=== PATIENT | female | born 1935 | race Caucasian/White ===

== ENCOUNTER 2017-08-26 23:14 | Inpatient (IN) | payer MEDICARE, OTHER ==
[2017-08-26] MEDS ORDERED: Sodium Chloride 0.9% 10 ML Syringe FLUSH PRN (23:20)
--- NOTE | 2017-08-26 23:25 | EDM.PDOC ---
ED HPI GENERAL MEDICAL PROBLEM - General Chief Complaint: Lower Extremity Injury/Pain Stated Complaint: FALL VIA NORTH Time Seen by Provider: 08/26/17 23:16 Source of Information: Reports: Patient, EMS, Old Records, RN Notes Reviewed History Limitations: Reports: No Limitations - History of Present Illness INITIAL COMMENTS - FREE TEXT/NARRATIVE: EMS arrival, received fentanyl 100 g IV prior to arrival Chief complaint Fall, right hip pain History of present illness 82-year-old female, lives in her home with her , tripped over a rocker and landed on her right hip. Unable to get up. Considerable pain. No other injuries If she lays still in is mild and currently She does have some shaking currently No recent illness but she always has some nasal congestion. History of hypertension right hip Pain Score (Numeric/FACES): 6 - Related Data Allergies Allergy/AdvReac Type Severity Reaction Status Date / Time Sulfa (Sulfonamide Allergy Nausea and Verified 08/26/17 23:19 Antibiotics) Vomiting Home Meds: Home Meds Lisinopril 1 tab PO DAILY 08/26/17 [History] Metoprolol Succinate [Toprol XL] 25 mg PO DAILY 08/26/17 [History] Triamterene/Hydrochlorothiazid [Triamterene-HCTZ 37.5-25 MG] 1 tab PO DAILY 11/05 [History] tiZANidine HCl [Tizanidine HCl] 4 mg PO Q8H PRN 08/26/17 [History] Review of Systems - Review of Systems Review Of Systems: See Below Constitutional: Reports: No Symptoms Eyes: Reports: No Symptoms Ears: Reports: No Symptoms Nose: Reports: Congestion. Denies: Pain Mouth/Throat: Reports: No Symptoms Respiratory: Reports: No Symptoms Cardiovascular: Reports: No Symptoms GI/Abdominal: Reports: No Symptoms Musculoskeletal: Reports: Joint Pain (Right hip), Joint Swelling (Right hip right thigh and hip), Other. Denies: Back Pain Skin: Reports: No Symptoms (Unable to weight-bear) Neurological: Reports: No Symptoms Psychiatric: Reports: No Symptoms ED EXAM, GENERAL - Physical Exam Exam: See Below Exam Limited By: No Limitations General Appearance: Alert, Mild Distress, Other (Shaking with tremors from the fall, elevated blood pressure but other vital signs normal, color normal, no difficulty speaking or breathing) Eye Exam: Bilateral Eye: Normal Inspection Ears: Normal External Exam, Hearing Loss (Chronic, mild) Nose: Normal Inspection Throat/Mouth: Normal Inspection Head: Atraumatic, Normocephalic Neck: Normal Inspection, Non-Tender Respiratory/Chest: No Respiratory Distress, No Accessory Muscle Use (In) Cardiovascular: Normal Peripheral Pulses, Regular Rate, Rhythm GI/Abdominal: Soft, Non-Tender Extremities: Joint Swelling (Right hip), Limited Range of Motion, Other (Large swelling, probable hematoma right hip) Neurological: Alert, Oriented, Normal Cognition Psychiatric: Normal Affect Skin Exam: Warm, Dry, Intact, Normal Color, No Rash Course - Vital Signs Last Recorded V/S: Last Vital Signs Temp 36.8 C 08/26/17 23:16 Pulse 72 08/26/17 23:16 Resp 18 08/26/17 23:16 BP 167/82 H 08/26/17 23:16 Pulse Ox 92 L 08/26/17 23:16 - Orders/Labs/Meds Orders: Active Orders 24 hr Category Date Time Status Peripheral IV Care [RC] . DIRECTED Care 08/26/17 23:20 Active Chest 1V Frontal [CR] Stat Exams 08/26/17 23:52 Taken Hip Min 1V Rt [CR] Stat Exams 08/26/17 23:26 Ordered Sodium Chloride 0.9% [Normal Saline] 1,000 ml Med 08/26/17 23:30 Active IV ASDIRECTED Sodium Chloride 0.9% [Saline Flush] Med 08/26/17 23:20 Active 10 ml FLUSH ASDIRECTED PRN Peripheral IV Insertion Adult [OM.PC] Routine Oth 08/26/17 23:19 Ordered Medication Orders Sodium Chloride (Normal Saline) 1,000 mls @ 250 mls/hr IV ASDIRECTED BRENT Last Admin: 08/26/17 23:37 Dose: 250 mls/hr Sodium Chloride (Saline Flush) 10 ml FLUSH ASDIRECTED PRN PRN Reason: Keep Vein Open Last Admin: 08/26/17 23:37 Dose: 10 ml Labs: Laboratory Tests 08/26/17 08/26/17 Range/Units 23:25 23:25 WBC 5.6 (4.5-11.0) K/uL RBC 4.59 (3.30-5.50) M/uL Hgb 14.0 (12.0-15.0) g/dL Hct 41.0 (36.0-48.0) % MCV 89 (80-98) fL MCH 31 (27-31) pg MCHC 34 (32-36) % Plt Count 216 (150-400) K/uL Sodium 128 L (140-148) mmol/L Potassium 3.9 (3.6-5.2) mmol/L Chloride 93 L (100-108) mmol/L Carbon Dioxide 27 (21-32) mmol/L Anion Gap 11.9 (5.0-14.0) mmol/L BUN 30 H (7-18) mg/dL Creatinine 1.1 H (0.6-1.0) mg/dL Est Cr Clr Drug Dosing 34.26 mL/min Estimated GFR (MDRD) 47 L (>60) Glucose 109 H (74-106) mg/dL Calcium 9.2 (8.5-10.1) mg/dL Meds: Medications Generic Name Dose Route Start Last Admin Trade Name Freq PRN Reason Stop Dose Admin Sodium Chloride 1,000 mls @ 250 mls/hr 08/26/17 23:30 08/26/17 23:37 Normal Saline IV 250 mls/hr ASDIRECTED BRENT Administration Sodium Chloride 10 ml 08/26/17 23:20 08/26/17 23:37 Saline Flush FLUSH 10 ml ASDIRECTED PRN Administration Keep Vein Open - Re-Assessments/Exams Free Text/Narrative Re-Assessment/Exam: 08/26/17 23:24 82-year-old female who tripped and fell at her own home Large swelling and hematoma right hip. Intravenous saline and labs ordered X-ray right hip 08/27/17 00:05 Subtrochanteric fracture of the shaft of the right femur Dr. Christianson consult at for admission, admit to hospitalist, he plans on doing surgery in the morning Hydromorphone 0.5 mg IV for pain Traction to right leg Departure - Departure Time of Disposition: 00:06 Disposition: Admitted As Inpatient 64 Condition: Undetermined Clinical Impression: Subtrochanteric fracture of femur Qualifiers: Encounter type: initial encounter Fracture type: closed Fracture alignment: displaced Laterality: right Qualified Code(s): S72.21XA - Displaced subtrochanteric fracture of right femur, initial encounter for closed fracture - Discharge Information Referrals: PCP,None [Primary Care Provider] - - My Orders Last 24 Hours: My Active Orders 08/26/17 23:19 Peripheral IV Insertion Adult [OM.PC] Routine 08/26/17 23:20 Peripheral IV Care [RC] . DIRECTED Sodium Chloride 0.9% [Saline Flush] 10 ml FLUSH ASDIRECTED PRN 08/26/17 23:26 Hip Min 1V Rt [CR] Stat 08/26/17 23:30 Sodium Chloride 0.9% [Normal Saline] 1,000 ml IV ASDIRECTED 08/26/17 23:52 Chest 1V Frontal [CR] Stat - Assessment/Plan Last 24 Hours: My Active Orders 08/26/17 23:19 Peripheral IV Insertion Adult [OM.PC] Routine 08/26/17 23:20 Peripheral IV Care [RC] . DIRECTED Sodium Chloride 0.9% [Saline Flush] 10 ml FLUSH ASDIRECTED PRN 08/26/17 23:26 Hip Min 1V Rt [CR] Stat 08/26/17 23:30 Sodium Chloride 0.9% [Normal Saline] 1,000 ml IV ASDIRECTED 08/26/17 23:52 Chest 1V Frontal [CR] Stat
[2017-08-26] MEDS ORDERED: Sodium Chloride 0.9% 1,000 ML IV SCH (23:30)
[2017-08-27] MEDS ORDERED: HYDROmorphone 0.5 MG/0.5 ML Syringe IVPUSH ONE (00:17)
[2017-08-27] MEDS ORDERED: Pantoprazole 40 MG Vial IV SCH (00:30)
--- NOTE | 2017-08-27 00:34 | PCM.HP ---
H&P History of Present Illness - General Date of Service: 08/27/17 Admit Problem/Dx: Admission Diagnosis/Problem Admission Diagnosis/Problem Subtrochanteric fracture of femur Source of Information: Patient History Limitations: Reports: No Limitations - History of Present Illness Initial Comments - Free Text/Narative: 82-year-old female with past medical history of hypertension came to the ED with the complaining of fall. Patient tripped herself and landed on the right lower extremity. Since then patient unable to get up and unable to put weight on the right lower extremity. Patient reports that the pain is 4-5/10 intensity. Chest pain Patient received 1 dose of fentanyl, 1 dose of Dilantin in the ED. Patient denies any chest pain, exertional chest pain, breathing difficulty, headaches, dizziness, lightheadedness. Patient denies any head injury, loss of consciousness. Patient denies any abnormal shaking movements. Patient is Compliment with blood pressure medications. In the ED patient lab results and electrolytes are at baseline. Received pain medication and IV fluids. Other review of systems are not significant. right hip Pain Score (Numeric/FACES): 6 - Related Data Allergies/Adverse Reactions: Allergies Allergy/AdvReac Type Severity Reaction Status Date / Time Sulfa (Sulfonamide Allergy Nausea and Verified 08/26/17 23:19 Antibiotics) Vomiting Home Medications: Home Meds Lisinopril 1 tab PO DAILY 08/26/17 [History] Metoprolol Succinate [Toprol XL] 25 mg PO DAILY 08/26/17 [History] Triamterene/Hydrochlorothiazid [Triamterene-HCTZ 37.5-25 MG] 1 tab PO DAILY 11/05 [History] tiZANidine HCl [Tizanidine HCl] 4 mg PO Q8H PRN 08/26/17 [History] Aspirin [Halfprin] 81 mg PO DAILY 08/27/17 [History] Past Medical History HEENT History: Reports: Cataract Cardiovascular History: Reports: High Cholesterol, Hypertension - Past Surgical History HEENT Surgical History: Reports: Cataract Surgery Female Surgical History: Reports: Hysterectomy, Salpingo-Oophorectomy Social & Family History - Family History Family Medical History: Noncontributory - Tobacco Use Smoking Status *Q: Never Smoker - Caffeine Use Caffeine Use: Reports: Tea - Recreational Drug Use Recreational Drug Use: No H&P Review of Systems - Review of Systems: Review Of Systems: See Below General: Denies: Fever, Chills HEENT: Denies: Dysphasia, Ear Pain, Eye Pain Pulmonary: Denies: Shortness of Breath, Wheezing, Pleuritic Chest Pain, Cough, Sputum, Hemoptysis Cardiovascular: Denies: Chest Pain, Palpitations, Dyspnea on Exertion, Orthopnea , Edema, Lightheadedness Gastrointestinal: Denies: Abdominal Pain Genitourinary: Denies: Dysuria, Frequency, Burning Musculoskeletal: Reports: Leg Pain, Joint Pain, Joint Swelling. Denies: Neck Pain, Shoulder Pain Skin: Denies: Cyanosis, Jaundice Psychiatric: Denies: Confusion, Depression Neurological: Reports: Gait Disturbance. Denies: Confusion, Dizziness Hematologic/Lymphatic: Denies: Anemia, Easy Bleeding Exam - Exam Exam: See Below - Vital Signs Vital Signs: Last Vital Signs Temp 36.8 C 08/26/17 23:16 Pulse 72 08/26/17 23:16 Resp 18 08/26/17 23:16 BP 167/82 H 08/26/17 23:16 Pulse Ox 92 L 08/26/17 23:16 Weight: 61.235 kg - Exam General: Alert, Oriented Neck: Supple, Trachea Midline Lungs: Clear to Auscultation, Normal Respiratory Effort Cardiovascular: Regular Rate, Regular Rhythm Extremities: Leg Pain, Limited Range of Motion, Increased Warmth Skin: Warm, Dry, Intact Neuro Extensive - Mental Status: Alert, Oriented x3, Normal Mood/Affect - Patient Data Lab Results Last 24 hrs: Laboratory Results - last 24 hr 08/26/17 08/26/17 Range/Units 23:25 23:25 WBC 5.6 (4.5-11.0) K/uL RBC 4.59 (3.30-5.50) M/uL Hgb 14.0 (12.0-15.0) g/dL Hct 41.0 (36.0-48.0) % MCV 89 (80-98) fL MCH 31 (27-31) pg MCHC 34 (32-36) % Plt Count 216 (150-400) K/uL Sodium 128 L (140-148) mmol/L Potassium 3.9 (3.6-5.2) mmol/L Chloride 93 L (100-108) mmol/L Carbon Dioxide 27 (21-32) mmol/L Anion Gap 11.9 (5.0-14.0) mmol/L BUN 30 H (7-18) mg/dL Creatinine 1.1 H (0.6-1.0) mg/dL Est Cr Clr Drug Dosing 34.26 mL/min Estimated GFR (MDRD) 47 L (>60) Glucose 109 H (74-106) mg/dL Calcium 9.2 (8.5-10.1) mg/dL Result Diagrams: 08/26/17 23:25 08/26/17 23:25 - Problem List (1) Essential hypertension SNOMED Code(s): 53709781 ICD Code: I10 - ESSENTIAL (PRIMARY) HYPERTENSION Status: Acute Current Visit: Yes (2) Hematoma SNOMED Code(s): 460061245 ICD Code: T14.8XXA - OTHER INJURY OF UNSPECIFIED BODY REGION, INITIAL ENCOUNTER Status: Acute Current Visit: Yes (3) Fall SNOMED Code(s): 9153515, 829240027 ICD Code: W19.XXXA - UNSPECIFIED FALL, INITIAL ENCOUNTER Status: Acute Current Visit: Yes (4) Subtrochanteric fracture of femur SNOMED Code(s): 301501396 ICD Code: S72.23XA - DISPLACED SUBTROCHANTERIC FRACTURE OF UNSP FEMUR, INIT Status: Acute Current Visit: Yes Qualifiers: Encounter type: initial encounter Fracture type: closed Fracture alignment: displaced Laterality: right Qualified Code(s): S72.21XA - Displaced subtrochanteric fracture of right femur, initial encounter for closed fracture Problem List Initiated/Reviewed/Updated: Yes Orders Last 24hrs: Active Orders 24 hr Category Date Time Status Patient Status [ADT] Routine ADT 08/27/17 00:23 Ordered Bedrest Bathroom Privileges [RC] ASDIRECTED Care 08/27/17 00:23 Ordered Cardiac Monitoring [RC] .As Directed Care 08/27/17 00:25 Ordered Height and Weight [RC] DAILY Care 08/27/17 00:23 Ordered Intake and Output [RC] QSHIFT Care 08/27/17 00:25 Ordered Notify Provider Consults [RC] ASDIRECTED Care 08/27/17 00:28 Ordered Oxygen Therapy [RC] PRN Care 08/27/17 00:23 Ordered Peripheral IV Care [RC] . DIRECTED Care 07/09/18 23:20 Active Pulse Oximetry [RC] PRN Care 08/27/17 00:25 Ordered Urinary Catheter Assessment [RC] ASDIRECTED Care 08/27/17 00:23 Ordered VTE/DVT Education [RC] Per Unit Routine Care 08/27/17 00:23 Ordered Vital Signs [RC] Q4H Care 08/27/17 00:23 Ordered Consult to Physician [CONS] Routine Cons 08/27/17 00:23 Ordered OT Evaluation and Treatment [CONS] Routine Cons 08/27/17 00:23 Ordered PT Evaluation and Treatment [CONS] Routine Cons 08/27/17 00:23 Ordered Nothing per Oral Now Diet [DIET] Diet 08/27/17 Breakfast Ordered Chest 1V Frontal [CR] Stat Exams 08/26/17 23:52 Taken Hip Min 1V Rt [CR] Stat Exams 08/26/17 23:26 Taken CBC WITH AUTO DIFF [HEME] AM Lab 08/27/17 05:11 Ordered COMPREHENSIVE METABOLIC PN,CMP [CHEM] AM Lab 08/27/17 05:11 Ordered CULTURE URINE [RM] Stat Lab 08/27/17 00:23 Ordered UA W/O MICROSCOPIC [URIN] Stat Lab 08/27/17 00:23 Ordered Docusate Sodium/Sennosides [Senna Plus] Med 08/27/17 00:23 Ordered 1 tab PO BID PRN Morphine Med 08/27/17 00:23 Ordered 2 mg IVPUSH Q2H PRN Ondansetron [Zofran] Med 08/27/17 00:23 Ordered 4 mg IV Q4H PRN Pantoprazole [ProTONIX IV] Med 08/27/17 00:30 Ordered 40 mg IV Q24H Sodium Chloride 0.9% [Normal Saline] 1,000 ml Med 08/26/17 23:30 Active IV ASDIRECTED Sodium Chloride 0.9% [Saline Flush] Med 08/26/17 23:20 Active 10 ml FLUSH ASDIRECTED PRN Antiembolic Hose [OM.PC] Per Unit Routine Oth 08/27/17 00:25 Ordered Peripheral IV Insertion Adult [OM.PC] Routine Oth 08/26/17 23:19 Ordered Resuscitation Status Routine Resus Stat 08/27/17 00:23 Ordered Medication Orders Sodium Chloride (Normal Saline) 1,000 mls @ 250 mls/hr IV ASDIRECTED BRENT Last Admin: 08/26/17 23:37 Dose: 250 mls/hr Morphine Sulfate (Morphine) 2 mg IVPUSH Q2H PRN PRN Reason: Pain (severe 7-10) Ondansetron HCl (Zofran) 4 mg IV Q4H PRN PRN Reason: Nausea/Vomiting Pantoprazole Sodium (Protonix Iv) 40 mg IV Q24H [facility] Senna/Docusate Sodium (Senna Plus) 1 tab PO BID PRN PRN Reason: Constipation Sodium Chloride (Saline Flush) 10 ml FLUSH ASDIRECTED PRN PRN Reason: Keep Vein Open Last Admin: 08/26/17 23:37 Dose: 10 ml Assessment/Plan Comment:: 82-year-old female with past medical history of hypertension came to the ED with c/o of fall and diagnosed with sub-trochanteric fracture of right femur and admitted in the hospital as inpatient status. 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 No previous history of CAD Diet nothing by mouth for now IV fluids 125 ml/per hour normal saline CODE STATUS full code Folic catheter in place DVT prophylaxis Pass boots
[2017-08-27] MEDS: Morphine 2 MG/ML Syringe IVPUSH PRN ×4 (02:26→11:33)
[2017-08-27] MEDS: Sodium Chloride 0.9% 1,000 ML IV SCH ×2 (05:32→16:48)
--- NOTE | 2017-08-27 08:34 | CR ---
CHEST: Portable supine CLINICAL HISTORY:Preop COMPARISON:None FINDINGS: Vascularity is cephalized. This may be positional. Heart size is normal. There are no effu sions. IMPRESSION: Mildly prominent vascularity and lung markings are likely related to supine position. No infiltrates are seen
--- NOTE | 2017-08-27 08:44 | CR ---
Hip Min 1V Rt CLINICAL HISTORY: Pain, trauma FINDINGS: There is a dislocated subtrochanteric fracture of the right femur. There is moderate abduct ion of the proximal femur. Impression: Transverse displaced subtrochanteric fracture Moderate abduction of the proximal femur
[2017-08-27] MEDS ORDERED: fentaNYL 100 MCG/2 ML SDV ONE (09:36)
[2017-08-27] MEDS ORDERED: Midazolam 1 MG/ML 2 ML SDV ONE (09:36)
[2017-08-27] MEDS ORDERED: Propofol 200 MG/20 ML SDV ONE (09:36)
[2017-08-27] MEDS ORDERED: Povidone-Iodine 10% Soln 118.25 ML Bottle ONE (11:06)
[2017-08-27] MEDS ORDERED: Bupivacaine 0.5%/EPINEPHrine 1:200,000 50 ML MDV ONE (11:06)
--- NOTE | 2017-08-27 11:50 | PCM.CONS ---
H&P History of Present Illness - General Date of Service: 08/27/17 Admit Problem/Dx: Admission Diagnosis/Problem Admission Diagnosis/Problem Subtrochanteric fracture of femur Source of Information: Patient History Limitations: Reports: No Limitations - History of Present Illness Onset of Symptoms: Reports: Sudden Duration of Symptoms: Reports: Day(s): Location: Reports: Lower Extremity, Right Quality: Reports: Ache, Dull, Stabbing, Throbbing Improves with: Reports: Immobilization Worsens with: Reports: Movement Associated Symptoms: Reports: No Other Symptoms right hip Pain Score (Numeric/FACES): 6 - Related Data Allergies/Adverse Reactions: Allergies Allergy/AdvReac Type Severity Reaction Status Date / Time Sulfa (Sulfonamide Allergy Nausea and Verified 08/26/17 23:19 Antibiotics) Vomiting Home Medications: Home Meds Lisinopril 1 tab PO DAILY 08/26/17 [History] Metoprolol Succinate [Toprol XL] 25 mg PO DAILY 08/26/17 [History] Triamterene/Hydrochlorothiazid [Triamterene-HCTZ 37.5-25 MG] 1 tab PO DAILY 11/05 [History] tiZANidine HCl [Tizanidine HCl] 4 mg PO Q8H PRN 08/26/17 [History] Aspirin [Halfprin] 81 mg PO DAILY 08/27/17 [History] Past Medical History HEENT History: Reports: Cataract Cardiovascular History: Reports: High Cholesterol, Hypertension 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: - Infectious Disease History Infectious Disease History: Reports: Chicken Pox, Measles, Mumps, Shingles - Past Surgical History HEENT Surgical History: Reports: Cataract Surgery Female Surgical History: Reports: Hysterectomy, Salpingo-Oophorectomy Social & Family History - Family History Family Medical History: Noncontributory Cardiac: Reports: Heart Failure Endocrine/Metabolic: Reports: Diabetes, type II Oncologic: Reports: Breast - Tobacco Use Smoking Status *Q: Never Smoker - Caffeine Use Caffeine Use: Reports: Tea - Recreational Drug Use Recreational Drug Use: No H&P Review of Systems - Review of Systems: Review Of Systems: See Below General: Reports: No Symptoms HEENT: Reports: No Symptoms Pulmonary: Reports: No Symptoms Cardiovascular: Reports: No Symptoms Gastrointestinal: Reports: No Symptoms Genitourinary: Reports: No Symptoms Musculoskeletal: Reports: Leg Pain, Joint Pain Skin: Reports: No Symptoms Psychiatric: Reports: No Symptoms Neurological: Reports: No Symptoms Hematologic/Lymphatic: Reports: No Symptoms Immunologic: Reports: No Symptoms Exam - Exam Exam: See Below - Vital Signs Vital Signs: Last Vital Signs Temp 99.1 F 08/27/17 11:32 Pulse 66 08/27/17 11:32 Resp 16 08/27/17 11:32 BP 155/63 H 08/27/17 11:32 Pulse Ox 97 08/27/17 11:32 Weight: 140 lb 0.002 oz - Exam General: Alert, Oriented HEENT: PERRLA, Conjunctiva Clear, Mucosa Moist & [place], Normal Nasal Septum, Pupils Equal Neck: Supple, Trachea Midline Lungs: Normal Respiratory Effort Extremities: Leg Pain, Limited Range of Motion Peripheral Pulses: 2+: Dorsalis Pedis (L), Dorsalis Pedis (R) Skin: Warm, Dry, Intact Neuro Extensive - Mental Status: Alert, Oriented x3, Normal Mood/Affect, Normal Cognition, Memory Intact Psychiatric: Alert, Normal Affect, Normal Mood - Patient Data Lab Results Last 24 hrs: Laboratory Results - last 24 hr 08/26/17 08/26/17 08/27/17 Range/Units 23:25 23:25 00:01 WBC 5.6 (4.5-11.0) K/uL RBC 4.59 (3.30-5.50) M/uL Hgb 14.0 (12.0-15.0) g/dL Hct 41.0 (36.0-48.0) % MCV 89 (80-98) fL MCH 31 (27-31) pg MCHC 34 (32-36) % Plt Count 216 (150-400) K/uL Neut % (Auto) (36-66) % Lymph % (Auto) (24-44) % [place] % (Auto) (2-6) % Eos % (Auto) (2-4) % Baso % (Auto) (0-1) % Sodium 128 L (140-148) mmol/L Potassium 3.9 (3.6-5.2) mmol/L Chloride 93 L (100-108) mmol/L Carbon Dioxide 27 (21-32) mmol/L Anion Gap 11.9 (5.0-14.0) mmol/L BUN 30 H (7-18) mg/dL Creatinine 1.1 H (0.6-1.0) mg/dL Est Cr Clr Drug Dosing 34.26 mL/min Estimated GFR (MDRD) 47 L (>60) Glucose 109 H (74-106) mg/dL Calcium 9.2 (8.5-10.1) mg/dL Total Bilirubin (0.2-1.0) mg/dL AST (15-37) U/L ALT (12-78) U/L Alkaline Phosphatase (46-116) U/L Creatine Kinase 147 (26-192) U/L Total Protein (6.4-8.2) g/dL Albumin (3.4-5.0) g/dL Globulin (2.3-3.5) g/dL Albumin/Globulin Ratio (1.2-2.2) Urine Color Urine Appearance Urine pH (4.5-8.0) Ur Specific [place] (1.008-1.030) Urine Protein (NEGATIVE) mg/dL Urine Glucose (UA) (NEGATIVE) mg/dL Urine Ketones (NEGATIVE) mg/dL Urine Occult Blood (NEGATIVE) Urine Nitrite (NEGATIVE) Urine Bilirubin (NEGATIVE) Urine Urobilinogen (NORMAL) mg/dL Ur Leukocyte Esterase (NEGATIVE) 08/27/17 08/27/17 08/27/17 Range/Units 00:39 05:10 05:10 WBC 8.1 (4.5-11.0) K/uL RBC 4.45 (3.30-5.50) M/uL Hgb 14.0 (12.0-15.0) g/dL Hct 39.6 (36.0-48.0) % MCV 89 (80-98) fL MCH 32 H (27-31) pg MCHC 35 (32-36) % Plt Count 211 (150-400) K/uL Neut % (Auto) 88 H (36-66) % Lymph % (Auto) 5 L (24-44) % [place] % (Auto) 6 (2-6) % Eos % (Auto) 0 L (2-4) % Baso % (Auto) 0 (0-1) % Sodium 127 L (140-148) mmol/L Potassium 3.7 (3.6-5.2) mmol/L Chloride 93 L (100-108) mmol/L Carbon Dioxide 25 (21-32) mmol/L Anion Gap 12.7 (5.0-14.0) mmol/L BUN 22 H (7-18) mg/dL Creatinine 0.9 (0.6-1.0) mg/dL Est Cr Clr Drug Dosing 41.87 mL/min Estimated GFR (MDRD) 60 (>60) Glucose 134 H (74-106) mg/dL Calcium 8.4 L (8.5-10.1) mg/dL Total Bilirubin 0.5 (0.2-1.0) mg/dL AST 22 (15-37) U/L ALT 24 (12-78) U/L Alkaline Phosphatase 54 (46-116) U/L Creatine Kinase (26-192) U/L Total Protein 6.2 L (6.4-8.2) g/dL Albumin 3.3 L (3.4-5.0) g/dL Globulin 2.9 (2.3-3.5) g/dL Albumin/Globulin Ratio 1.1 L (1.2-2.2) Urine Color Yellow Urine Appearance Clear Urine pH 7.0 (4.5-8.0) Ur Specific [place] 1.010 (1.008-1.030) Urine Protein Negative (NEGATIVE) mg/dL Urine Glucose (UA) Normal (NEGATIVE) mg/dL Urine Ketones Negative (NEGATIVE) mg/dL Urine Occult Blood Negative (NEGATIVE) Urine Nitrite Negative (NEGATIVE) Urine Bilirubin Negative (NEGATIVE) Urine Urobilinogen Normal (NORMAL) mg/dL Ur Leukocyte Esterase Negative (NEGATIVE) Result Diagrams: 08/27/17 05:10 08/27/17 05:10 Consult PN Assessment/Plan Procedures: Procedures COMP SCREEN MAMMOGRAM ADD-ON (11/23/15) COMPUTER DX MAMMOGRAM ADD-ON (11/12/12) MAMMOGRAM ONE BREAST (11/12/12) TTE W/DOPPLER COMPLETE (06/25/16) US EXAM BREAST(S) (11/12/12) (1) Subtrochanteric fracture of femur SNOMED Code(s): 971613156 Code(s): S72.23XA - DISPLACED SUBTROCHANTERIC FRACTURE OF UNSP FEMUR, INIT Current Visit: Yes Qualifiers: Encounter type: initial encounter Fracture type: closed Fracture alignment: displaced Laterality: right Qualified Code(s): S72.21XA - Displaced subtrochanteric fracture of right femur, initial encounter for closed fracture Problem List Initiated/Reviewed/Updated: Yes My Orders Last 24 Hours: My Active Orders 08/27/17 12:30 ceFAZolin [Ancef] 2 gm Premix Bag 1 bag IV ONCALL Plan: A: POD 0 right closed subtrochanteric femur fracture, displaced P: NPO, informed consent obtained for right femur cephallomedullary nail, pain control
[2017-08-27] MEDS ORDERED: ceFAZolin 2 GM in Premix Bag 1 BAG IV ONE (12:30)
[2017-08-27] MEDS ORDERED: Ondansetron 4 MG/2 ML SDV ONE (12:35)
[2017-08-27] MEDS ORDERED: ePHEDrine 50 MG/ML SDV ONE (12:39)
[2017-08-27] MEDS ORDERED: Morphine 2 MG/ML Syringe IVPUSH PRN (13:07)
--- NOTE | 2017-08-27 17:36 | PCM.PN ---
- General Info Date of Service: 08/27/17 Subjective Update: Ms. Holloway is an 82-year-old woman who was admitted through the emergency department after she fell at home and experienced a right subtrochanteric hip fracture. Surgical repair performed earlier today by Dr. Christianson. Functional Status: Reports: Tolerating Diet - Review of Systems General: Reports: Weakness. Denies: Fever, Chills Pulmonary: Reports: No Symptoms Cardiovascular: Reports: No Symptoms Gastrointestinal: Reports: No Symptoms - Patient Data Vitals - Most Recent: Last Vital Signs Temp 97.5 F 08/27/17 16:30 Pulse 71 08/27/17 16:30 Resp 16 08/27/17 16:30 BP 90/61 08/27/17 16:30 Pulse Ox 100 08/27/17 16:30 Weight - Most Recent: 140 lb 0.002 oz I&O - Last 24 Hours: Intake & Output 08/27/17 08/27/17 08/27/17 06:59 14:59 22:59 Intake Total 433 120 Output Total 1325 1600 Balance -892 -1600 120 Lab Results Last 24 Hours: Laboratory Results - last 24 hr 08/26/17 08/26/17 08/27/17 Range/Units 23:25 23:25 00:01 WBC 5.6 (4.5-11.0) K/uL RBC 4.59 (3.30-5.50) M/uL Hgb 14.0 (12.0-15.0) g/dL Hct 41.0 (36.0-48.0) % MCV 89 (80-98) fL MCH 31 (27-31) pg MCHC 34 (32-36) % Plt Count 216 (150-400) K/uL Neut % (Auto) (36-66) % Lymph % (Auto) (24-44) % [place] % (Auto) (2-6) % Eos % (Auto) (2-4) % Baso % (Auto) (0-1) % Sodium 128 L (140-148) mmol/L Potassium 3.9 (3.6-5.2) mmol/L Chloride 93 L (100-108) mmol/L Carbon Dioxide 27 (21-32) mmol/L Anion Gap 11.9 (5.0-14.0) mmol/L BUN 30 H (7-18) mg/dL Creatinine 1.1 H (0.6-1.0) mg/dL Est Cr Clr Drug Dosing 34.26 mL/min Estimated GFR (MDRD) 47 L (>60) Glucose 109 H (74-106) mg/dL Calcium 9.2 (8.5-10.1) mg/dL Total Bilirubin (0.2-1.0) mg/dL AST (15-37) U/L ALT (12-78) U/L Alkaline Phosphatase (46-116) U/L Creatine Kinase 147 (26-192) U/L Total Protein (6.4-8.2) g/dL Albumin (3.4-5.0) g/dL Globulin (2.3-3.5) g/dL Albumin/Globulin Ratio (1.2-2.2) Urine Color Urine Appearance Urine pH (4.5-8.0) Ur Specific [place] (1.008-1.030) Urine Protein (NEGATIVE) mg/dL Urine Glucose (UA) (NEGATIVE) mg/dL Urine Ketones (NEGATIVE) mg/dL Urine Occult Blood (NEGATIVE) Urine Nitrite (NEGATIVE) Urine Bilirubin (NEGATIVE) Urine Urobilinogen (NORMAL) mg/dL Ur Leukocyte Esterase (NEGATIVE) 08/27/17 08/27/17 08/27/17 Range/Units 00:39 05:10 05:10 WBC 8.1 (4.5-11.0) K/uL RBC 4.45 (3.30-5.50) M/uL Hgb 14.0 (12.0-15.0) g/dL Hct 39.6 (36.0-48.0) % MCV 89 (80-98) fL MCH 32 H (27-31) pg MCHC 35 (32-36) % Plt Count 211 (150-400) K/uL Neut % (Auto) 88 H (36-66) % Lymph % (Auto) 5 L (24-44) % [place] % (Auto) 6 (2-6) % Eos % (Auto) 0 L (2-4) % Baso % (Auto) 0 (0-1) % Sodium 127 L (140-148) mmol/L Potassium 3.7 (3.6-5.2) mmol/L Chloride 93 L (100-108) mmol/L Carbon Dioxide 25 (21-32) mmol/L Anion Gap 12.7 (5.0-14.0) mmol/L BUN 22 H (7-18) mg/dL Creatinine 0.9 (0.6-1.0) mg/dL Est Cr Clr Drug Dosing 41.87 mL/min Estimated GFR (MDRD) 60 (>60) Glucose 134 H (74-106) mg/dL Calcium 8.4 L (8.5-10.1) mg/dL Total Bilirubin 0.5 (0.2-1.0) mg/dL AST 22 (15-37) U/L ALT 24 (12-78) U/L Alkaline Phosphatase 54 (46-116) U/L Creatine Kinase (26-192) U/L Total Protein 6.2 L (6.4-8.2) g/dL Albumin 3.3 L (3.4-5.0) g/dL Globulin 2.9 (2.3-3.5) g/dL Albumin/Globulin Ratio 1.1 L (1.2-2.2) Urine Color Yellow Urine Appearance Clear Urine pH 7.0 (4.5-8.0) Ur Specific [place] 1.010 (1.008-1.030) Urine Protein Negative (NEGATIVE) mg/dL Urine Glucose (UA) Normal (NEGATIVE) mg/dL Urine Ketones Negative (NEGATIVE) mg/dL Urine Occult Blood Negative (NEGATIVE) Urine Nitrite Negative (NEGATIVE) Urine Bilirubin Negative (NEGATIVE) Urine Urobilinogen Normal (NORMAL) mg/dL Ur Leukocyte Esterase Negative (NEGATIVE) Med Orders - Current: Current Medications Sodium Chloride (Normal Saline) 1,000 mls @ 125 mls/hr IV ASDIRECTED [facility] Last Admin: 08/27/17 16:48 Dose: 125 mls/hr Cefazolin Sodium/Dextrose 2 gm (/ Premix) 50 mls @ 100 mls/hr IV Q8H [facility] Stop: 08/28/17 10:29 Morphine Sulfate (Morphine) 2 mg IVPUSH Q30M PRN PRN Reason: Pain (severe 7-10) Ondansetron HCl (Zofran) 4 mg IV Q4H PRN PRN Reason: Nausea/Vomiting Pantoprazole Sodium (Protonix Iv) 40 mg IV Q24H [facility] Senna/Docusate Sodium (Senna Plus) 1 tab PO BID PRN PRN Reason: Constipation Sodium Chloride (Saline Flush) 10 ml FLUSH ASDIRECTED PRN PRN Reason: Keep Vein Open Last Admin: 08/26/17 23:37 Dose: 10 ml Discontinued Medications Bupivacaine HCl/Epinephrine Bitart (Marcaine 0.5%/Epinephrine 1:200,000) Confirm Administered Dose 50 ml .ROUTE .STK-MED ONE Stop: 08/27/17 11:07 Last Admin: 08/27/17 13:51 Dose: 40 ml Ephedrine Sulfate (Ephedrine Sulfate) Confirm Administered Dose 50 mg .ROUTE .STK-MED ONE Stop: 08/27/17 12:40 Fentanyl (Sublimaze) Confirm Administered Dose 100 mcg .ROUTE .STK-MED ONE Stop: 08/27/17 09:37 Hydromorphone HCl (Dilaudid) 0.5 mg IVPUSH ONETIME ONE Stop: 08/27/17 00:18 Last Admin: 08/27/17 00:25 Dose: 0.5 mg Sodium Chloride (Normal Saline) 1,000 mls @ 250 mls/hr IV ASDIRECTED [facility] Last Admin: 08/26/17 23:37 Dose: 250 mls/hr Cefazolin Sodium/Dextrose 2 gm (/ Premix) 50 mls @ 100 mls/hr IV ONCALL ONE Stop: 08/27/17 12:59 Last Admin: 08/27/17 12:11 Dose: 100 mls/hr Midazolam HCl (Versed 1 Mg/Ml) Confirm Administered Dose 2 mg .ROUTE .STK-MED ONE Stop: 08/27/17 09:37 Morphine Sulfate (Morphine) 2 mg IVPUSH Q2H PRN PRN Reason: Pain (severe 7-10) Last Admin: 08/27/17 11:33 Dose: 2 mg Ondansetron HCl (Zofran) Confirm Administered Dose 4 mg .ROUTE .STK-MED ONE Stop: 08/27/17 12:36 Pantoprazole Sodium (Protonix Iv) 40 mg IV Q24H [facility] Last Admin: 08/27/17 02:22 Dose: 40 mg Povidone Iodine (Betadine 10% Soln) Confirm Administered Dose 1 ml .ROUTE .STK- MED ONE Stop: 08/27/17 11:07 Propofol (Diprivan 20 Ml) Confirm Administered Dose 200 mg .ROUTE .STK-MED ONE Stop: 08/27/17 09:37 - Exam General: Alert, Oriented, Cooperative, Moderate Distress Lungs: Clear to Auscultation, Normal Respiratory Effort Cardiovascular: Regular Rate, Regular Rhythm, No Murmurs GI/Abdominal Exam: Soft, Non-Tender, No Organomegaly, No Distention - Problem List Review Problem List Initiated/Reviewed/Updated: Yes - My Orders Last 24 Hours: My Active Orders 08/27/17 13:07 Morphine 2 mg IVPUSH Q30M PRN 08/28/17 05:00 BASIC METABOLIC PANEL,BMP [CHEM] Timed CBC WITH AUTO DIFF [HEME] Timed - Plan Plan:: ASSESSMENT AND PLAN SUBTROCHANTERIC HIP FRACTURE-surgical repair performed earlier today by Dr. Christianson -Postoperative care per Dr. Christianson HYPERTENSION -Continue outpatient medical regimen MAINTENANCE ISSUES Diet-orders per Dr. Christianson CODE STATUS full code Folic catheter in place
[2017-08-27] MEDS: ceFAZolin 2 GM in Premix Bag 1 BAG IV SCH (18:25)
[2017-08-27] MEDS: Ondansetron 4 MG/2 ML SDV IV PRN (19:00)
[2017-08-27] MEDS: Pantoprazole 40 MG Vial IV SCH (21:06)
[2017-08-27] MEDS: Acetaminophen/oxyCODONE 325-5 MG Tab PO PRN (23:05)
--- NOTE | 2017-08-27 23:59 | PCM.SN ---
- Free Text/Narrative Note: time: 20:40 call from [address] [place] [address]; requesting oral pain medication s/o; hip fracture a; pain control p; order Percocet 5-325mg one every 4 to 6 hr prn pain order Flexeril 10mg po tid prn muscle spasm.
[2017-08-28] MEDS: ceFAZolin 2 GM in Premix Bag 1 BAG IV SCH ×2 (02:09→09:26)
[2017-08-28] MEDS: Sodium Chloride 0.9% 1,000 ML IV SCH ×2 (02:10→10:15)
[2017-08-28] MEDS: Acetaminophen/oxyCODONE 325-5 MG Tab PO PRN ×5 (05:39→21:21)
--- NOTE | 2017-08-28 08:14 | OR ---
DATE OF PROCEDURE: 08/27/2017 PREOPERATIVE DIAGNOSIS: Right femur subtrochanteric fracture. POSTOPERATIVE DIAGNOSIS: Right femur subtrochanteric fracture. PROCEDURE PERFORMED: Right hip cephalomedullary nail. ANESTHESIA: Spinal plus conscious sedation. FLUID: Lactated Ringer's solution. ESTIMATED BLOOD LOSS: 200 mL. COMPLICATIONS: None. SPECIMEN: None. DISCHARGE DISPOSITION: Stable to PACU. INSTRUMENTATION: A Synthes 400 x 10 mm nail, 85 mm femoral screw, and 42 mm distal locking screw. HISTORY AND INDICATION FOR THE PROCEDURE: The patient was seen in the emergency department, last night she had fallen sustaining the above-mentioned fracture, which was found on radiographs. She was admitted to the hospitalist service, and I was consulted. I visited her on the floor. Risks and benefits of the procedure were explained to the patient. Informed consent was obtained. DETAILS OF PROCEDURE: The patient was seen preoperatively by myself and the Anesthesia staff in the preoperative holding area, where the operative site was marked. She was brought to the operative suite by the Anesthesia staff, where spinal sedation and conscious sedation was administered. She was positioned on a traction table. All extremities were found to be well padded. Bilateral lower extremities were placed in traction boots. We did evaluate the fracture preoperatively prior to draping, we then prepped and draped the patient in a sterile manner. Time-out was called identifying the correct patient, the correct procedure, the correct site, and antibiotics had begun with appropriate period of time. I made a long incision all the way down to the level of the subtrochanteric fracture through the iliotibial band. I did this so we could manipulate the proximal femur. I then used an awl and then I was able to pass a guidewire distally. I then measured the wire 400 mm. I anticipated a 10 mm nail based on preoperative radiographs. We then reamed with a 10 and 11.5 reamer and then a proximal 16 reamer. After reaming the proximal 16 through the proximal cortex, I then introduced the nail and tried to keep the proximal fragment and internally rotated position. I then passed a guidewire through the lateral cortex into the femur and this took a few times on AP and lateral views due to the external rotation of the proximal fragment. This was placed to maintain the tip apex distance of less than 2.5 cm. I then over-reamed the cortex and then reamed into the femoral head. I then placed my 85 mm screw. After this had been performed, I focused on a little bit better fracture reduction, so while I was feeling the fracture site, I adjusted my rotation as well as traction and extension, and then tried to approximate this as best as possible via palpation. After this had been performed, I used the perfect ambler technique and placed my distal 42 mm locking screw. We then copiously irrigated with saline. I closed the proximal IT band with #1 Stratafix followed by subcutaneous closure with #2 Stratafix, followed by skin sandi. The distal locking hole was closed with skin sandi. Sterile dressings were placed. The patient was then transferred to the hospital bed, and taken to the PACU in stable condition. Kirby Christianson DO /[id number]
--- NOTE | 2017-08-28 09:07 | PCM.PN ---
- General Info Date of Service: 08/28/17 Functional Status: Reports: Pain Controlled, Tolerating Diet - Review of Systems General: Reports: No Symptoms HEENT: Reports: No Symptoms Pulmonary: Reports: No Symptoms Cardiovascular: Reports: No Symptoms Gastrointestinal: Reports: Nausea Genitourinary: Reports: No Symptoms Musculoskeletal: Reports: Leg Pain Skin: Reports: No Symptoms Neurological: Reports: No Symptoms Psychiatric: Reports: No Symptoms - Patient Data Vitals - Most Recent: Last Vital Signs Temp 98.4 F 08/28/17 07:35 Pulse 83 08/28/17 07:35 Resp 16 08/28/17 07:35 BP 104/40 L 08/28/17 07:35 Pulse Ox 90 L 08/28/17 07:51 Weight - Most Recent: 140 lb 0.002 oz I&O - Last 24 Hours: Intake & Output 08/27/17 08/28/17 08/28/17 22:59 06:59 14:59 Intake Total 2102 1502 600 Output Total 650 900 Balance 1452 602 600 Lab Results Last 24 Hours: Laboratory Results - last 24 hr 08/28/17 08/28/17 Range/Units 05:00 05:00 WBC 4.4 L (4.5-11.0) K/uL RBC 3.33 (3.30-5.50) M/uL Hgb 10.4 L D (12.0-15.0) g/dL Hct 30.2 L (36.0-48.0) % MCV 91 (80-98) fL MCH 31 (27-31) pg MCHC 34 (32-36) % Plt Count 175 (150-400) K/uL Neut % (Auto) 68 H (36-66) % Lymph % (Auto) 15 L (24-44) % [place] % (Auto) 17 H (2-6) % Eos % (Auto) 0 L (2-4) % Baso % (Auto) 0 (0-1) % Sodium 130 L (140-148) mmol/L Potassium 3.7 (3.6-5.2) mmol/L Chloride 98 L (100-108) mmol/L Carbon Dioxide 24 (21-32) mmol/L Anion Gap 11.7 (5.0-14.0) mmol/L BUN 10 D (7-18) mg/dL Creatinine 0.8 (0.6-1.0) mg/dL Est Cr Clr Drug Dosing 47.03 mL/min Estimated GFR (MDRD) > 60 (>60) Glucose 136 H (74-106) mg/dL Calcium 7.2 L (8.5-10.1) mg/dL Michel Results Last 24 Hours: Microbiology 08/27/17 00:39 Urine Culture - Preliminary Urine, Catheterized NO GROWTH AFTER 1 DAY Med Orders - Current: Current Medications Cyclobenzaprine HCl (Flexeril) 10 mg PO TID PRN PRN Reason: muscle spasms Sodium Chloride (Normal Saline) 1,000 mls @ 125 mls/hr IV ASDIRECTED [facility] Last Admin: 08/28/17 02:10 Dose: 125 mls/hr Cefazolin Sodium/Dextrose 2 gm (/ Premix) 50 mls @ 100 mls/hr IV Q8H [facility] Stop: 08/28/17 10:29 Last Admin: 08/28/17 02:09 Dose: 100 mls/hr Morphine Sulfate (Morphine) 2 mg IVPUSH Q30M PRN PRN Reason: Pain (severe 7-10) Last Admin: 08/28/17 05:44 Dose: 2 mg Ondansetron HCl (Zofran) 4 mg IV Q4H PRN PRN Reason: Nausea/Vomiting Last Admin: 08/27/17 19:00 Dose: 4 mg Oxycodone/Acetaminophen (Percocet 325-5 Mg) 1 tab PO Q4H PRN PRN Reason: Pain Last Admin: 08/28/17 05:39 Dose: 1 tab Pantoprazole Sodium (Protonix Iv) 40 mg IV Q24H [facility] Last Admin: 08/27/17 21:06 Dose: 40 mg Senna/Docusate Sodium (Senna Plus) 1 tab PO BID PRN PRN Reason: Constipation Sodium Chloride (Saline Flush) 10 ml FLUSH ASDIRECTED PRN PRN Reason: Keep Vein Open Last Admin: 08/26/17 23:37 Dose: 10 ml Discontinued Medications Bupivacaine HCl/Epinephrine Bitart ([place] 0.5%/Epinephrine 1:200,000) Confirm Administered Dose 50 ml .ROUTE .STK-MED ONE Stop: 08/27/17 11:07 Last Admin: 08/27/17 13:51 Dose: 40 ml Ephedrine Sulfate (Ephedrine Sulfate) Confirm Administered Dose 50 mg .ROUTE .STK-MED ONE Stop: 08/27/17 12:40 Fentanyl (Sublimaze) Confirm Administered Dose 100 mcg .ROUTE .STK-MED ONE Stop: 08/27/17 09:37 Hydromorphone HCl (Dilaudid) 0.5 mg IVPUSH ONETIME ONE Stop: 08/27/17 00:18 Last Admin: 08/27/17 00:25 Dose: 0.5 mg Sodium Chloride (Normal Saline) 1,000 mls @ 250 mls/hr IV ASDIRECTED [facility] Last Admin: 08/26/17 23:37 Dose: 250 mls/hr Cefazolin Sodium/Dextrose 2 gm (/ Premix) 50 mls @ 100 mls/hr IV ONCALL ONE Stop: 08/27/17 12:59 Last Admin: 08/27/17 12:11 Dose: 100 mls/hr Midazolam HCl (Versed 1 Mg/Ml) Confirm Administered Dose 2 mg .ROUTE .STK-MED ONE Stop: 08/27/17 09:37 Morphine Sulfate (Morphine) 2 mg IVPUSH Q2H PRN PRN Reason: Pain (severe 7-10) Last Admin: 08/27/17 11:33 Dose: 2 mg Ondansetron HCl (Zofran) Confirm Administered Dose 4 mg .ROUTE .STK-MED ONE Stop: 08/27/17 12:36 Pantoprazole Sodium (Protonix Iv) 40 mg IV Q24H [facility] Last Admin: 08/27/17 02:22 Dose: 40 mg Povidone Iodine (Betadine 10% Soln) Confirm Administered Dose 1 ml .ROUTE .STK- MED ONE Stop: 08/27/17 11:07 Propofol (Diprivan 20 Ml) Confirm Administered Dose 200 mg .ROUTE .STK-MED ONE Stop: 08/27/17 09:37 - Exam General: Alert, Oriented HEENT: Pupils Equal, Pupils Reactive, EOMI Neck: Supple, Trachea Midline Lungs: Normal Respiratory Effort Extremities: Normal Inspection, Leg Pain, Limited Range of Motion Peripheral Pulses: 2+: Dorsalis Pedis (R) Skin: Warm, Dry, Intact Wound/Incisions: Healing Well, Dressing Dry and Intact, No Drainage Neurological: No New Focal Deficit Psy/Mental Status: Alert, Normal Affect, Normal Mood - Problem List & Annotations (1) Subtrochanteric fracture of femur SNOMED Code(s): 828601858 Code(s): S72.23XA - DISPLACED SUBTROCHANTERIC FRACTURE OF UNSP FEMUR, INIT Status: Acute Current Visit: Yes Qualifiers: Encounter type: initial encounter Fracture type: closed Fracture alignment: displaced Laterality: right Qualified Code(s): S72.21XA - Displaced subtrochanteric fracture of right femur, initial encounter for closed fracture - Problem List Review Problem List Initiated/Reviewed/Updated: Yes - My Orders Last 24 Hours: My Active Orders 08/27/17 12:15 Fluoro Up To 1Hr [CR] Routine 08/27/17 14:45 Weight bearing status [OM.PC] Routine 08/27/17 16:36 Pulse Oximetry Continuous Monitoring [OM.PC] Routine 08/27/17 16:37 Overnight Pulse Oximetry [RC] Click to Edit 08/27/17 18:00 ceFAZolin [Ancef] 2 gm Premix Bag 1 bag IV Q8H 08/27/17 Dinner Advance Diet Instructions [DIET] - Plan Plan:: assessment: Postoperative day 1 right hip cephalo-medullary nail status post subtrochanteric fracture. Plan: PT, OT, pain control, DVT prophylaxis. Advance diet as tolerated. Follow- up in 3 weeks.
[2017-08-28] MEDS: Aspirin 325 MG Tab.EC PO SCH (10:14)
--- NOTE | 2017-08-28 17:51 | PCM.PN ---
- General Info Date of Service: 08/28/17 Subjective Update: Ms. Holloway is done well since surgery yesterday, she did have an episode of transient hypotension that responded to a fluid bolus. She feels comfortable at rest, but does experience pain with activity as would be expected. Denies symptoms of nausea, chest pain, or shortness of breath area Functional Status: Reports: Tolerating Diet - Review of Systems General: Reports: Weakness. Denies: Fever, Chills Pulmonary: Reports: No Symptoms Cardiovascular: Reports: No Symptoms Gastrointestinal: Reports: No Symptoms - Patient Data Vitals - Most Recent: Last Vital Signs Temp 98.3 F 08/28/17 14:28 Pulse 82 08/28/17 14:28 Resp 16 08/28/17 14:28 BP 103/43 L 08/28/17 14:28 Pulse Ox 95 08/28/17 14:28 Weight - Most Recent: 147 lb 1.6 oz I&O - Last 24 Hours: Intake & Output 08/28/17 08/28/17 08/28/17 06:59 14:59 22:59 Intake Total 1502 2082 Output Total 900 1300 Balance 602 2082 -1300 Lab Results Last 24 Hours: Laboratory Results - last 24 hr 08/28/17 08/28/17 Range/Units 05:00 05:00 WBC 4.4 L (4.5-11.0) K/uL RBC 3.33 (3.30-5.50) M/uL Hgb 10.4 L D (12.0-15.0) g/dL Hct 30.2 L (36.0-48.0) % MCV 91 (80-98) fL MCH 31 (27-31) pg MCHC 34 (32-36) % Plt Count 175 (150-400) K/uL Neut % (Auto) 68 H (36-66) % Lymph % (Auto) 15 L (24-44) % [place] % (Auto) 17 H (2-6) % Eos % (Auto) 0 L (2-4) % Baso % (Auto) 0 (0-1) % Sodium 130 L (140-148) mmol/L Potassium 3.7 (3.6-5.2) mmol/L Chloride 98 L (100-108) mmol/L Carbon Dioxide 24 (21-32) mmol/L Anion Gap 11.7 (5.0-14.0) mmol/L BUN 10 D (7-18) mg/dL Creatinine 0.8 (0.6-1.0) mg/dL Est Cr Clr Drug Dosing 47.03 mL/min Estimated GFR (MDRD) > 60 (>60) Glucose 136 H (74-106) mg/dL Calcium 7.2 L (8.5-10.1) mg/dL Michel Results Last 24 Hours: Microbiology 08/27/17 00:39 Urine Culture - Preliminary Urine, Catheterized NO GROWTH AFTER 1 DAY Med Orders - Current: Current Medications Aspirin (Ecotrin) 325 mg PO DAILY [facility] Last Admin: 08/28/17 10:14 Dose: 325 mg Cyclobenzaprine HCl (Flexeril) 10 mg PO TID PRN PRN Reason: muscle spasms Morphine Sulfate (Morphine) 2 mg IVPUSH Q30M PRN PRN Reason: Pain (severe 7-10) Last Admin: 08/28/17 05:44 Dose: 2 mg Ondansetron HCl (Zofran) 4 mg IV Q4H PRN PRN Reason: Nausea/Vomiting Last Admin: 08/27/17 19:00 Dose: 4 mg Oxycodone/Acetaminophen (Percocet 325-5 Mg) 1 tab PO Q4H PRN PRN Reason: Pain Last Admin: 08/28/17 17:45 Dose: 1 tab Pantoprazole Sodium (Protonix Iv) 40 mg IV Q24H [facility] Last Admin: 08/27/17 21:06 Dose: 40 mg Senna/Docusate Sodium (Senna Plus) 1 tab PO BID PRN PRN Reason: Constipation Sodium Chloride (Saline Flush) 10 ml FLUSH ASDIRECTED PRN PRN Reason: Keep Vein Open Last Admin: 08/26/17 23:37 Dose: 10 ml Discontinued Medications Bupivacaine HCl/Epinephrine Bitart (Marcaine 0.5%/Epinephrine 1:200,000) Confirm Administered Dose 50 ml .ROUTE .STK-MED ONE Stop: 08/27/17 11:07 Last Admin: 08/27/17 13:51 Dose: 40 ml Ephedrine Sulfate (Ephedrine Sulfate) Confirm Administered Dose 50 mg .ROUTE .STK-MED ONE Stop: 08/27/17 12:40 Fentanyl (Sublimaze) Confirm Administered Dose 100 mcg .ROUTE .STK-MED ONE Stop: 08/27/17 09:37 Hydromorphone HCl (Dilaudid) 0.5 mg IVPUSH ONETIME ONE Stop: 08/27/17 00:18 Last Admin: 08/27/17 00:25 Dose: 0.5 mg Sodium Chloride (Normal Saline) 1,000 mls @ 250 mls/hr IV ASDIRECTED [facility] Last Admin: 08/26/17 23:37 Dose: 250 mls/hr Sodium Chloride (Normal Saline) 1,000 mls @ 125 mls/hr IV ASDIRECTED [facility] Last Admin: 08/28/17 10:15 Dose: 125 mls/hr Cefazolin Sodium/Dextrose 2 gm (/ Premix) 50 mls @ 100 mls/hr IV ONCALL ONE Stop: 08/27/17 12:59 Last Admin: 08/27/17 12:11 Dose: 100 mls/hr Cefazolin Sodium/Dextrose 2 gm (/ Premix) 50 mls @ 100 mls/hr IV Q8H [facility] Stop: 08/28/17 10:29 Last Admin: 08/28/17 09:26 Dose: 100 mls/hr Midazolam HCl (Versed 1 Mg/Ml) Confirm Administered Dose 2 mg .ROUTE .STK-MED ONE Stop: 08/27/17 09:37 Morphine Sulfate (Morphine) 2 mg IVPUSH Q2H PRN PRN Reason: Pain (severe 7-10) Last Admin: 08/27/17 11:33 Dose: 2 mg Ondansetron HCl (Zofran) Confirm Administered Dose 4 mg .ROUTE .STK-MED ONE Stop: 08/27/17 12:36 Pantoprazole Sodium (Protonix Iv) 40 mg IV Q24H [facility] Last Admin: 08/27/17 02:22 Dose: 40 mg Povidone Iodine (Betadine 10% Soln) Confirm Administered Dose 1 ml .ROUTE .STK- MED ONE Stop: 08/27/17 11:07 Propofol (Diprivan 20 Ml) Confirm Administered Dose 200 mg .ROUTE .STK-MED ONE Stop: 08/27/17 09:37 - Exam Quality Assessment: DVT Prophylaxis General: Alert, Oriented, Cooperative, Mild Distress Lungs: Clear to Auscultation, Normal Respiratory Effort Cardiovascular: Regular Rate, Regular Rhythm, No Murmurs GI/Abdominal Exam: Soft, Non-Tender, No Organomegaly, No Distention Extremities: Non-Tender, No Pedal Edema Skin: Warm, Dry - Problem List Review Problem List Initiated/Reviewed/Updated: Yes - Plan Plan:: ASSESSMENT AND PLAN SUBTROCHANTERIC HIP FRACTURE-surgical repair performed yesterday by Dr. Christianson. Overall stable and doing well -Postoperative care per Dr. Christianson HYPERTENSION -Continue outpatient medical regimen MAINTENANCE ISSUES Diet-orders per Dr. Christianson CODE STATUS full code Gould catheter in place
[2017-08-28] MEDS: Pantoprazole 40 MG Vial IV SCH (21:00)
[2017-08-29] MEDS: Acetaminophen/oxyCODONE 325-5 MG Tab PO PRN ×5 (02:04→21:14)
[2017-08-29] MEDS: Aspirin 325 MG Tab.EC PO SCH (08:06)
[2017-08-29] MEDS ORDERED: Bisacodyl 10 MG Supp RECTAL PRN (10:43)
--- NOTE | 2017-08-29 10:47 | PCM.PN ---
- General Info Date of Service: 08/29/17 Subjective Update: Ms. Holloway has been stable over the past 24 hours, continues to have pain with movement as would be expected. Progressing with physical therapy, with plan for discharge to group home tomorrow. - Review of Systems General: Reports: Weakness. Denies: Fever, Chills Pulmonary: Reports: No Symptoms Cardiovascular: Reports: No Symptoms Gastrointestinal: Reports: No Symptoms Musculoskeletal: Reports: Other (Right hip pain) - Patient Data Vitals - Most Recent: Last Vital Signs Temp 98.9 F 08/29/17 07:53 Pulse 86 08/29/17 07:53 Resp 16 08/29/17 07:53 BP 118/35 L 08/29/17 07:53 Pulse Ox 98 08/29/17 07:53 Weight - Most Recent: 147 lb 1.6 oz I&O - Last 24 Hours: Intake & Output 08/28/17 08/29/17 08/29/17 22:59 06:59 14:59 Intake Total 532 264 0606 Output Total 1800 1300 Balance -1060 -500 1410 Michel Results Last 24 Hours: Microbiology 08/27/17 00:39 Urine Culture - Final Urine, Catheterized NO GROWTH AFTER 2 DAYS Med Orders - Current: Current Medications Aspirin (Ecotrin) 325 mg PO DAILY BRENT Last Admin: 08/29/17 08:06 Dose: 325 mg Cyclobenzaprine HCl (Flexeril) 10 mg PO TID PRN PRN Reason: muscle spasms Morphine Sulfate (Morphine) 2 mg IVPUSH Q30M PRN PRN Reason: Pain (severe 7-10) Last Admin: 08/28/17 05:44 Dose: 2 mg Ondansetron HCl (Zofran) 4 mg IV Q4H PRN PRN Reason: Nausea/Vomiting Last Admin: 08/27/17 19:00 Dose: 4 mg Oxycodone/Acetaminophen (Percocet 325-5 Mg) 1 tab PO Q4H PRN PRN Reason: Pain Last Admin: 08/29/17 10:18 Dose: 1 tab Pantoprazole Sodium (Protonix) 40 mg PO BEDTIME BRENT Senna/Docusate Sodium (Senna Plus) 1 tab PO BID PRN PRN Reason: Constipation Last Admin: 08/29/17 09:56 Dose: 1 tab Sodium Chloride (Saline Flush) 10 ml FLUSH ASDIRECTED PRN PRN Reason: Keep Vein Open Last Admin: 08/26/17 23:37 Dose: 10 ml Discontinued Medications Bupivacaine HCl/Epinephrine Bitart (Marcaine 0.5%/Epinephrine 1:200,000) Confirm Administered Dose 50 ml .ROUTE .STK-MED ONE Stop: 08/27/17 11:07 Last Admin: 08/27/17 13:51 Dose: 40 ml Ephedrine Sulfate (Ephedrine Sulfate) Confirm Administered Dose 50 mg .ROUTE .STK-MED ONE Stop: 08/27/17 12:40 Fentanyl (Sublimaze) Confirm Administered Dose 100 mcg .ROUTE .STK-MED ONE Stop: 08/27/17 09:37 Hydromorphone HCl (Dilaudid) 0.5 mg IVPUSH ONETIME ONE Stop: 08/27/17 00:18 Last Admin: 08/27/17 00:25 Dose: 0.5 mg Sodium Chloride (Normal Saline) 1,000 mls @ 250 mls/hr IV ASDIRECTED [facility] Last Admin: 08/26/17 23:37 Dose: 250 mls/hr Sodium Chloride (Normal Saline) 1,000 mls @ 125 mls/hr IV ASDIRECTED [facility] Last Admin: 08/28/17 10:15 Dose: 125 mls/hr Cefazolin Sodium/Dextrose 2 gm (/ Premix) 50 mls @ 100 mls/hr IV ONCALL ONE Stop: 08/27/17 12:59 Last Admin: 08/27/17 12:11 Dose: 100 mls/hr Cefazolin Sodium/Dextrose 2 gm (/ Premix) 50 mls @ 100 mls/hr IV Q8H [facility] Stop: 08/28/17 10:29 Last Admin: 08/28/17 09:26 Dose: 100 mls/hr Midazolam HCl (Versed 1 Mg/Ml) Confirm Administered Dose 2 mg .ROUTE .STK-MED ONE Stop: 08/27/17 09:37 Morphine Sulfate (Morphine) 2 mg IVPUSH Q2H PRN PRN Reason: Pain (severe 7-10) Last Admin: 08/27/17 11:33 Dose: 2 mg Ondansetron HCl (Zofran) Confirm Administered Dose 4 mg .ROUTE .STK-MED ONE Stop: 08/27/17 12:36 Pantoprazole Sodium (Protonix Iv) 40 mg IV Q24H [facility] Last Admin: 08/27/17 02:22 Dose: 40 mg Pantoprazole Sodium (Protonix Iv) 40 mg IV Q24H [facility] Last Admin: 08/28/17 21:00 Dose: 40 mg Povidone Iodine (Betadine 10% Soln) Confirm Administered Dose 1 ml .ROUTE .STK- MED ONE Stop: 08/27/17 11:07 Propofol (Diprivan 20 Ml) Confirm Administered Dose 200 mg .ROUTE .STK-MED ONE Stop: 08/27/17 09:37 - Exam Quality Assessment: DVT Prophylaxis General: Alert, Oriented, Cooperative, Mild Distress Lungs: Clear to Auscultation, Normal Respiratory Effort Cardiovascular: Regular Rate, Regular Rhythm, No Murmurs GI/Abdominal Exam: Soft, Non-Tender, No Organomegaly, No Distention Extremities: Non-Tender, No Pedal Edema - Problem List Review Problem List Initiated/Reviewed/Updated: Yes - My Orders Last 24 Hours: My Active Orders 08/29/17 10:43 Bisacodyl [Dulcolax] 10 mg RECTAL DAILY PRN - Plan Plan:: ASSESSMENT AND PLAN SUBTROCHANTERIC HIP FRACTURE-surgical repair performed [address] Christianson. Overall stable and doing well -Postoperative care per Dr. Christianson HYPERTENSION-blood pressure has trended somewhat low over the past few days, antihypertensive therapy on hold -Continue to hold outpatient medications MAINTENANCE ISSUES Diet-orders per Dr. Christianson CODE STATUS full code Gould catheter in place
[2017-08-29] MEDS: Ondansetron 4 MG/2 ML SDV IV PRN (17:49)
[2017-08-29] MEDS ORDERED: Pantoprazole 40 MG Tab.CR PO SCH (21:00)
[2017-08-30] MEDS: Acetaminophen/oxyCODONE 325-5 MG Tab PO PRN ×2 (01:57→09:41)
[2017-08-30] MEDS: Cyclobenzaprine 10 MG Tab PO PRN ×2 (01:57→09:41)
[2017-08-30] MEDS: Aspirin 325 MG Tab.EC PO SCH (09:33)
--- NOTE | 2017-08-30 09:49 | PCM.DCSUM1 ---
Discharge Summary - Hospital Course Brief History: Ms. Holloway is an 82-year-old woman who was admitted through the emergency department after she fell at home, resulting in a subtrochanteric hip fracture. Diagnosis: Stroke: No - Discharge Data Discharge Date: 08/30/17 Discharge Disposition: DC/Tfer to [facility] Condition: Stable - Discharge Diagnosis/Problem(s) (1) Subtrochanteric fracture of femur SNOMED Code(s): 948641827 ICD Code: S72.23XA - DISPLACED SUBTROCHANTERIC FRACTURE OF UNSP FEMUR, INIT Status: Acute Current Visit: Yes Qualifiers: Encounter type: initial encounter Fracture type: closed Fracture alignment: displaced Laterality: right Qualified Code(s): S72.21XA - Displaced subtrochanteric fracture of right femur, initial encounter for closed fracture (2) Essential hypertension SNOMED Code(s): 15726215 ICD Code: I10 - ESSENTIAL (PRIMARY) HYPERTENSION Status: Chronic Current Visit: Yes (3) CKD (chronic kidney disease), stage III SNOMED Code(s): 060809497 ICD Code: N18.3 - CHRONIC KIDNEY DISEASE, STAGE 3 (MODERATE) Status: Chronic Current Visit: No - Patient Summary/Data Consults: Consultations 08/27/17 00:23 Consult to Physician [CONS] Routine Consulting Provider: Kirby Christianson Call Completed to Consulting Physician: No OT Evaluation and Treatment [CONS] Routine Please Evaluate and Treat. OT Reason for Consult: Strengthening This query below is only for informational purposes and is not editable. PT Evaluation and Treatment [CONS] Routine Please Evaluate and Treat. PT Reason for Consult: Strengthening This query below is only for informational purposes and is not editable. Hospital Course: 82-year-old female with past medical history of hypertension came to the ED with the complaining of fall. Patient tripped herself and landed on the right lower extremity. Since then patient unable to get up and unable to put weight on the right lower extremity. Patient reports that the pain is 4-5/10 intensity. X-ray obtained in the emergency department showed evidence of a right trochanteric fracture. Patient received 1 dose of fentanyl, 1 dose of Dilantin in the ED. Patient denies any chest pain, exertional chest pain, breathing difficulty, headaches, dizziness, lightheadedness. Patient denies any head injury, loss of consciousness. Patient denies any abnormal shaking movements. Patient is Compliment with blood pressure medications. In the ED patient lab results and electrolytes are at baseline. Received pain medication and IV fluids. Other review of systems are not significant. She was admitted to the hospital and given pain medication as needed as well as IV fluids for hydration. The morning after admission she was seen and evaluated by Dr. García Christianson for orthopedic consult and later in the day he underwent surgical repair of the fracture. She did fairly well during the postoperative course with no significant complications. Blood pressure medications were held on admission because of somewhat lower pressures and remained on hold through the rest of her hospital stay. Metoprolol will be resumed but the triamterene/ hydrochlorothiazide and lisinopril will remain on hold because of lower blood pressures. She will be discharged to the custodial for restorative physical therapy and occupational therapy. Activity will be as tolerated and she will be on a 2 g sodium diet. Follow-upappointment has been arranged to see Dr. Christianson in the clinic. - Patient Instructions Diet: Low Sodium Activity: As Tolerated Other/Special Instructions: Follow-up appointment with Dr. Christianson as previously scheduled. Daily physical therapy and occupational therapy while at the custodial. - Discharge Plan *PRESCRIPTION DRUG MONITORING PROGRAM REVIEWED*: Not Applicable *COPY OF PRESCRIPTION DRUG MONITORING REPORT IN PATIENT LETY: Not Applicable Prescriptions/Med Rec: oxyCODONE 5 mg PO Q4H PRN #30 tab PRN Reason: Pain Home Medications: Home Meds Metoprolol Succinate [Toprol XL] 25 mg PO DAILY 08/26/17 [History] tiZANidine HCl [Tizanidine HCl] 4 mg PO Q8H PRN 08/26/17 [History] Aspirin [Halfprin] 81 mg PO DAILY 08/27/17 [History] oxyCODONE 5 mg PO Q4H PRN #30 tab 08/30/17 [Rx] Referrals: Kirby Christianson DO [Physician] - 09/19/17 11:30 am - Discharge Summary/Plan Comment DC Time >30 min.: No - Patient Data Vitals - Most Recent: Last Vital Signs Temp 99.3 F 08/30/17 08:08 Pulse 96 08/30/17 08:08 Resp 16 08/30/17 08:08 BP 145/54 H 08/30/17 08:08 Pulse Ox 100 08/30/17 08:08 Weight - Most Recent: 147 lb 1.6 oz I&O - Last 24 hours: Intake & Output 08/29/17 08/30/17 08/30/17 22:59 06:59 14:59 Intake Total 400 600 Output Total 900 700 Balance -500 -100 CHARU Results - Last 24 hrs: Microbiology 08/27/17 00:39 Urine Culture - Final Urine, Catheterized NO GROWTH AFTER 2 DAYS Med Orders - Current: Current Medications Aspirin (Ecotrin) 325 mg PO DAILY [facility] Last Admin: 08/30/17 09:33 Dose: 325 mg Bisacodyl (Dulcolax) 10 mg RECTAL DAILY PRN PRN Reason: Constipation Last Admin: 08/29/17 13:11 Dose: 10 mg Cyclobenzaprine HCl (Flexeril) 10 mg PO TID PRN PRN Reason: muscle spasms Last Admin: 08/30/17 01:57 Dose: 10 mg Morphine Sulfate (Morphine) 2 mg IVPUSH Q30M PRN PRN Reason: Pain (severe 7-10) Last Admin: 08/28/17 05:44 Dose: 2 mg Ondansetron HCl (Zofran) 4 mg IV Q4H PRN PRN Reason: Nausea/Vomiting Last Admin: 08/29/17 17:49 Dose: 4 mg Oxycodone/Acetaminophen (Percocet 325-5 Mg) 1 tab PO Q4H PRN PRN Reason: Pain Last Admin: 08/30/17 01:57 Dose: 1 tab Pantoprazole Sodium (Protonix) 40 mg PO BEDTIME [facility] Last Admin: 08/29/17 21:14 Dose: 40 mg Senna/Docusate Sodium (Senna Plus) 1 tab PO BID PRN PRN Reason: Constipation Last Admin: 08/29/17 09:56 Dose: 1 tab Sodium Chloride (Saline Flush) 10 ml FLUSH ASDIRECTED PRN PRN Reason: Keep Vein Open Last Admin: 08/26/17 23:37 Dose: 10 ml Discontinued Medications Bupivacaine HCl/Epinephrine Bitart (Marcaine 0.5%/Epinephrine 1:200,000) Confirm Administered Dose 50 ml .ROUTE .STK-MED ONE Stop: 08/27/17 11:07 Last Admin: 08/27/17 13:51 Dose: 40 ml Ephedrine Sulfate (Ephedrine Sulfate) Confirm Administered Dose 50 mg .ROUTE .STK-MED ONE Stop: 08/27/17 12:40 Fentanyl (Sublimaze) Confirm Administered Dose 100 mcg .ROUTE .STK-MED ONE Stop: 08/27/17 09:37 Hydromorphone HCl (Dilaudid) 0.5 mg IVPUSH ONETIME ONE Stop: 08/27/17 00:18 Last Admin: 08/27/17 00:25 Dose: 0.5 mg Sodium Chloride (Normal Saline) 1,000 mls @ 250 mls/hr IV ASDIRECTED [facility] Last Admin: 08/26/17 23:37 Dose: 250 mls/hr Sodium Chloride (Normal Saline) 1,000 mls @ 125 mls/hr IV ASDIRECTED [facility] Last Admin: 08/28/17 10:15 Dose: 125 mls/hr Cefazolin Sodium/Dextrose 2 gm (/ Premix) 50 mls @ 100 mls/hr IV ONCALL ONE Stop: 08/27/17 12:59 Last Admin: 08/27/17 12:11 Dose: 100 mls/hr Cefazolin Sodium/Dextrose 2 gm (/ Premix) 50 mls @ 100 mls/hr IV Q8H [facility] Stop: 08/28/17 10:29 Last Admin: 08/28/17 09:26 Dose: 100 mls/hr Midazolam HCl (Versed 1 Mg/Ml) Confirm Administered Dose 2 mg .ROUTE .STK-MED ONE Stop: 08/27/17 09:37 Morphine Sulfate (Morphine) 2 mg IVPUSH Q2H PRN PRN Reason: Pain (severe 7-10) Last Admin: 08/27/17 11:33 Dose: 2 mg Ondansetron HCl (Zofran) Confirm Administered Dose 4 mg .ROUTE .STK-MED ONE Stop: 08/27/17 12:36 Pantoprazole Sodium (Protonix Iv) 40 mg IV Q24H [facility] Last Admin: 08/27/17 02:22 Dose: 40 mg Pantoprazole Sodium (Protonix Iv) 40 mg IV Q24H [facility] Last Admin: 08/28/17 21:00 Dose: 40 mg Povidone Iodine (Betadine 10% Soln) Confirm Administered Dose 1 ml .ROUTE .STK- MED ONE Stop: 08/27/17 11:07 Propofol (Diprivan 20 Ml) Confirm Administered Dose 200 mg .ROUTE .[facility]-MED ONE Stop: 08/27/17 09:37 - Exam General: Reports: Alert, Oriented, Cooperative, Mild Distress Lungs: Reports: Clear to Auscultation, Normal Respiratory Effort Cardiovascular: Reports: Regular Rate, Regular Rhythm, No Murmurs GI/Abdominal Exam: Soft, Non-Tender, No Organomegaly, No Distention
== END 2017-08-30 12:58 | DRG 482 ==
LOC: JP.ED 23:14 → JP.MS 08-27 00:23
PROVIDERS: ADMIT Family Medicine; ATTEND Hospitalist
PROC: 0QS606Z Reposition Right Upper Femur with Intramedullary Internal Fixation Device, Open Approach (ICD-10-PCS; principal; 2017-08-27)
DX: S72.21XA Displaced subtrochanteric fracture of right femur, initial encounter for closed fracture (principal); S70.01XA Contusion of right hip, initial encounter; I12.9 Hypertensive chronic kidney disease with stage 1 through stage 4 chronic kidney disease, or unspecified chronic kidney disease; N18.3 Chronic kidney disease, stage 3 (moderate); M25.551 Pain in right hip; W01.190A Fall on same level from slipping, tripping and stumbling with subsequent striking against furniture, initial encounter; Y92.009 Unspecified place in unspecified non-institutional (private) residence as the place of occurrence of the external cause; I95.89 Other hypotension; Z79.82 Long term (current) use of aspirin; Z88.2 Allergy status to sulfonamides
CPT/HCPCS: 36415; 71045 ×2; 73501 ×2; 80048; 82550; 85027; 96360; 99285; J7030; J7050; 76000; 80053; 81003; 85025; 87086; 94762; 96361; 97110-GP; 97112-GP; 97116-GP; 97162-GP; 97165-GO; 97530-GP; 97535-GP; A9270-GY; C1713; C9113; J0690; J1170; J2250; J2270; J2405; J2704; J3010

== ENCOUNTER 2020-07-09 03:45 | Emergency (ER) | payer MEDICARE, OTHER ==
--- NOTE | 2020-07-09 04:07 | EDM.PDOC ---
<Jose J Barnes - Last Filed: 07/09/20 05:04> ED HPI GENERAL MEDICAL PROBLEM - General Chief Complaint: Chest Pain Stated Complaint: CHEST PAIN VIA NORTH Time Seen by Provider: 07/09/20 03:51 Source of Information: Reports: Patient, EMS History Limitations: Reports: No Limitations - History of Present Illness INITIAL COMMENTS - FREE TEXT/NARRATIVE: Radha is an 85-year-old female presenting to the ED for evaluation of chest pain that started around 3 AM this morning. Patient states that she got up to go the bathroom and was noticing that she was experiencing some chest heaviness. She does have a history in the past of recurring episodes of chest pain and has undergone extensive work-up including stress test that have been unremarkable for any significant abnormalities. She is a patient of Yvonne Elder at the [facility] in [place]. She does have a significant history for essential hypertension and hyperlipidemia. She states that she came in tonight because after the discomfort started she was just unable to become comfortable laying in bed despite what position she was laying in. She currently rates her pain a 3-4 out of 10. It does not change with inspiration or movement. In fact movement seems to diminish the pain. She denies any diaphoresis, shortness of breath, or nausea. She does state that she has been getting these pains since she was in her young adulthood. She did eat a [place] sandwich that was deep-fried for supper accompanied by ice cream and decaf coffee tonight around 10 PM. Does have a history of reflux in the past but states this feels a bit different. 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 Anterior Chest Pain Score (Numeric/FACES): 3 - Related Data Allergies Allergy/AdvReac Type Severity Reaction Status Date / Time Sulfa (Sulfonamide Allergy Nausea and Verified 07/09/20 03:54 Antibiotics) Vomiting Home Meds: Home Meds Metoprolol Succinate [Toprol XL] 25 mg PO DAILY 08/26/17 [History] Aspirin [Halfprin] 81 mg PO DAILY 08/27/17 [History] Calcium Citrate/Vitamin D2 [Simeon-Citrate Plus Vitamin D Tab] 1 tab PO TID 10/10/17 [History] Lisinopril 10 mg PO DAILY 10/10/17 [History] Blairs-3/DHA/Epa/Fish Oil [Blairs-3 Fish Oil 1,000 MG Sfgl] 1,000 mg PO BID 10/10/17 [History] Red Yeast Rice 600 mg PO BID 10/10/17 [History] Triamterene/Hydrochlorothiazid [Triamterene-HCTZ 37.5-25 MG] 1 tab PO DAILY 10/10/17 [History] Past Medical History HEENT History: Reports: Cataract Cardiovascular History: Reports: High Cholesterol, Hypertension 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: Reports: Musculoskeletal History: Reports: Other (See Below) Other Musculoskeletal History: right hip nailing - Infectious Disease History Infectious Disease History: Reports: Chicken Pox, Measles, Mumps, Shingles - Past Surgical History HEENT Surgical History: Reports: Cataract Surgery Female Surgical History: Reports: Hysterectomy, Salpingo-Oophorectomy Social & Family History - Family History Family Medical History: No Pertinent Family History Cardiac: Reports: Heart Failure Endocrine/Metabolic: Reports: Diabetes, type II Oncologic: Reports: Breast - Caffeine Use Caffeine Use: Reports: None ED ROS GENERAL - Review of Systems Review Of Systems: See Below Constitutional: Reports: No Symptoms HEENT: Reports: No Symptoms Respiratory: Reports: No Symptoms Cardiovascular: Reports: Chest Pain (Central to left-sided chest pressure) Endocrine: Reports: No Symptoms GI/Abdominal: Reports: No Symptoms : Reports: No Symptoms Musculoskeletal: Reports: No Symptoms Skin: Reports: No Symptoms Neurological: Reports: No Symptoms Psychiatric: Reports: No Symptoms Hematologic/Lymphatic: Reports: No Symptoms Immunologic: Reports: No Symptoms ED EXAM, GENERAL - Physical Exam Exam: See Below Exam Limited By: No Limitations General Appearance: Alert, No Apparent Distress Eye Exam: Left Eye: Proptosis, Bilateral Eye: EOMI, PERRL Throat/Mouth: Normal Inspection, Normal Oropharynx, Normal Voice, No Airway Compromise Head: Atraumatic, Normocephalic Neck: Normal Inspection, Supple Respiratory/Chest: No Respiratory Distress, Lungs Clear, Normal Breath Sounds Cardiovascular: Normal Peripheral Pulses, Regular Rate, Rhythm, No Murmur Peripheral Pulses: 2+: Radial (L), Radial (R), Posterior Tibial (L), Posterior Tibial (R) GI/Abdominal: Normal Bowel Sounds, Soft, Non-Tender Extremities: Normal Inspection, Normal Range of Motion Neurological: Alert, Oriented, Normal Cognition, No Motor/Sensory Deficits Psychiatric: Normal Affect, Normal Mood Skin Exam: Warm, Dry Lymphatic: No Adenopathy #1 Interpretation EKG Date: 07/09/20 Time: 04:07 Rhythm: NSR Rate (Beats/Min): 61 [place]: Normal P-Wave: Present QRS: LBBB QT: Normal Comparison: NA - No Prior EKG Course - Re-Assessments/Exams Free Text/Narrative Re-Assessment/Exam: 07/09/20 04:37 I reviewed the patient's EKG showing normal sinus rhythm with a rate of 61 bpm and a left bundle branch block. She does have a prolonged DE interval but does not quite meet criteria for first-degree AV block. She has repolarization abnormality secondary to the bundle branch block. Assessment for ischemia or infarct is impossible based on the block. Labs were obtained showing a normal CBC. Her comprehensive metabolic panel shows a sodium of 132 with a potassium of 4.0. Her BUN is 33 with a creatinine of 1.2. Her GFR is calculated at 42 significant for stage IIIb chronic kidney disease. Her PT and PTT are both normal. Her troponin I is negative at less than 0.017. 07/09/20 05:04 I suspect that the patient's symptoms are likely related to reflux and esophagitis rather than cardiac in origin. I do not find anything worrisome in her evaluation for acute coronary syndrome, however, she does have a left bundle branch block making evaluation for a STEMI difficult. EMS reported that they gave her a sublingual nitro with no improvement of her symptoms which also does not eliminate the possibility of this being coronary in origin, however, since she has had similar symptoms for most of her adult life I think that it is less likely that this is the case. I will give her the option for reevaluating a troponin in 3 hours to determine if there is a delta troponin rise versus allowing her to go home and follow-up with her primary care provider or return if she has recurrence of symptoms. After discussion with the patient and her we will do a delta troponin at 830 this morning and if she has any significant rise in her troponin this is likely a non-STEMI and will likely require a transfer for further evaluation either at [facility] or [facility], conversely if her troponin is unchanged this is likely reflux and she should be able to be discharged home with a PPI. Patient and her are in agreement with this plan. Care of the patient will be turned over to Dr. Lyn at 0700 hrs. while awaiting for the repeat troponin I at 0830. Departure - Departure Disposition: DC/Tfer to Acute Hospital 02 Clinical Impression: Non-STEMI (non-ST elevated myocardial infarction) Referrals: Yvonne Quinones DO [Primary Care Provider] - Forms: ED Department Discharge Sepsis Event Note (ED) - Evaluation Sepsis Screening Result: No Definite Risk <Johnny Mcmahon - Last Filed: 07/09/20 12:29> ED HPI GENERAL MEDICAL PROBLEM - History of Present Illness INITIAL COMMENTS - FREE TEXT/NARRATIVE: Has had both of her Covid vaccines. Was given NTG en route via EMS without benefit. Was offered NTG SL here in the ER and she declined. Course - Vital Signs Text/Narrative:: Called [facility], no bed availability currently, but will have shortly. Will call us back at that time. 0850h Dr. Amor called at [facility] @ 1200h, accepts in transfer. (Hospitalist.) Last Recorded V/S: Last Vital Signs Temp 37.0 C 07/09/20 09:08 Pulse 78 07/09/20 09:08 Resp 94 H 07/09/20 07:12 BP 139/64 07/09/20 09:08 Pulse Ox 95 07/09/20 05:29 - Orders/Labs/Meds Orders: Active Orders 24 hr Category Date Time Status EKG Documentation Completion [RC] ASDIRECTED Care 07/09/20 03:52 Active CORONAVIRUS COVID-19, ZO Stat Lab 07/09/20 12:23 Ordered Heparin Sodium Med 07/09/20 12:26 Once 4,000 units IVPUSH ONETIME ONE Heparin Sodium/D5W [Heparin 25,000 Units in D5W 500 ML] Med 07/09/20 12:30 Ordered 25,000 units in 500 ml IV TITRATE Nitroglycerin [Nitrostat] Med 07/09/20 08:51 Active 0.4 mg SL Q5M PRN Nitroglycerin/D5W [Nitroglycerin 25 MG/D5W 250 ML] Med 07/09/20 12:30 Ordered 25 mg in 250 ml IV TITRATE Sodium Chloride 0.9% [Saline Flush] Med 07/09/20 09:09 Active 10 ml FLUSH ASDIRECTED PRN Saline Lock Insert [OM.PC] Routine Oth 07/09/20 09:09 Ordered EKG 12 Lead [EK] Routine Ther 07/09/20 03:51 Ordered Medication Orders Nitroglycerin (Nitroglycerin 0.4 Mg Tab.Sl) 0.4 mg SL Q5M PRN PRN Reason: Chest Pain Sodium Chloride (Sodium Chloride 0.9% 10 Ml Syringe) 10 ml FLUSH ASDIRECTED PRN PRN Reason: Keep Vein Open Labs: Laboratory Tests 07/09/20 07/09/20 07/09/20 Range/Units 04:02 04:02 04:02 WBC 4.3 L (4.5-11.0) K/uL RBC 4.54 (3.30-5.50) M/uL Hgb 13.9 D (12.0-15.0) g/dL Hct 40.8 (36.0-48.0) % MCV 90 (80-98) fL MCH 31 (27-31) pg MCHC 34 (32-36) % Plt Count 244 (150-400) K/uL Neut % (Auto) 46.3 (36-66) % Lymph % (Auto) 32.2 (24-44) % [place] % (Auto) 15.2 H (2-6) % Eos % (Auto) 4.4 H (2-4) % Baso % (Auto) 1.9 H (0-1) % PT 10.6 (9.5-12.0) sec INR 0.97 (0.80-1.20) APTT 25.4 L (27.0-36.0) sec Sodium 132 L (140-148) mmol/L Potassium 4.0 (3.6-5.2) mmol/L Chloride 94 L (100-108) mmol/L Carbon Dioxide 29 (21-32) mmol/L Anion Gap 13.0 (5.0-14.0) mmol/L BUN 33 H D (7-18) mg/dL Creatinine 1.2 H (0.6-1.0) mg/dL Est Cr Clr Drug Dosing 29.72 mL/min Estimated GFR (MDRD) 42 L (>60) Glucose 102 (74-106) mg/dL Calcium 9.0 (8.5-10.1) mg/dL Total Bilirubin 0.4 (0.2-1.0) mg/dL AST 22 (15-37) U/L ALT 29 (12-78) U/L Alkaline Phosphatase 69 (46-116) U/L Troponin I < 0.017 (0.000-0.056) ng/mL Total Protein 6.5 (6.4-8.2) g/dL Albumin 3.4 (3.4-5.0) g/dL Globulin 3.1 (2.3-3.5) g/dL Albumin/Globulin Ratio 1.1 L (1.2-2.2) 07/09/20 Range/Units 08:15 WBC (4.5-11.0) K/uL RBC (3.30-5.50) M/uL Hgb (12.0-15.0) g/dL Hct (36.0-48.0) % MCV (80-98) fL MCH (27-31) pg MCHC (32-36) % Plt Count (150-400) K/uL Neut % (Auto) (36-66) % Lymph % (Auto) (24-44) % [place] % (Auto) (2-6) % Eos % (Auto) (2-4) % Baso % (Auto) (0-1) % PT (9.5-12.0) sec INR (0.80-1.20) APTT (27.0-36.0) sec Sodium (140-148) mmol/L Potassium (3.6-5.2) mmol/L Chloride (100-108) mmol/L Carbon Dioxide (21-32) mmol/L Anion Gap (5.0-14.0) mmol/L BUN (7-18) mg/dL Creatinine (0.6-1.0) mg/dL Est Cr Clr Drug Dosing mL/min Estimated GFR (MDRD) (>60) Glucose (74-106) mg/dL Calcium (8.5-10.1) mg/dL Total Bilirubin (0.2-1.0) mg/dL AST (15-37) U/L ALT (12-78) U/L Alkaline Phosphatase (46-116) U/L Troponin I 0.240 H* (0.000-0.056) ng/mL Total Protein (6.4-8.2) g/dL Albumin (3.4-5.0) g/dL Globulin (2.3-3.5) g/dL Albumin/Globulin Ratio (1.2-2.2) Meds: Medications Generic Name Dose Route Start Last Admin Trade Name Shanna PRN Reason Stop Dose Admin Nitroglycerin 0.4 mg 07/09/20 08:51 Nitroglycerin 0.4 Mg Tab.Sl SL Q5M PRN Chest Pain Sodium Chloride 10 ml 07/09/20 09:09 Sodium Chloride 0.9% 10 Ml Syringe FLUSH ASDIRECTED PRN Keep Vein Open Discontinued Medications Generic Name Dose Route Start Last Admin Trade Name Shanna PRN Reason Stop Dose Admin Aspirin 324 mg 07/09/20 08:52 07/09/20 11:08 Aspirin 81 Mg Tab.Chew PO 07/09/20 08:53 Not Given ONETIME ONE Aspirin 243 mg 07/09/20 08:59 07/09/20 09:06 Aspirin 81 Mg Tab.Chew PO 07/09/20 09:00 243 mg ONETIME ONE Administration Departure - Departure Time of Disposition: 13:00 Reason for Transfer *Q: Other Sepsis Event Note (ED) - Focused Exam Vital Signs: Vital Signs Temp Pulse Resp BP Pulse Ox 07/09/20 09:08 37.0 C 78 139/64 07/09/20 07:12 62 94 H 143/58 H 07/09/20 05:29 64 12 162/68 H 95 07/09/20 03:52 36.2 C 72 13 185/86 H 97 - My Orders Last 24 Hours: My Active Orders 07/09/20 08:51 Nitroglycerin [Nitrostat] 0.4 mg SL Q5M PRN 07/09/20 09:09 Sodium Chloride 0.9% [Saline Flush] 10 ml FLUSH ASDIRECTED PRN Saline Lock Insert [OM.PC] Routine 07/09/20 12:23 CORONAVIRUS COVID-19, ZO Stat 07/09/20 12:26 Heparin Sodium 4,000 units IVPUSH ONETIME ONE 07/09/20 12:30 Heparin Sodium/D5W [Heparin 25,000 Units in D5W 500 ML] 25,000 units in 500 ml IV TITRATE Nitroglycerin/D5W [Nitroglycerin 25 MG/D5W 250 ML] 25 mg in 250 ml IV TITRATE - Assessment/Plan Last 24 Hours: My Active Orders 07/09/20 08:51 Nitroglycerin [Nitrostat] 0.4 mg SL Q5M PRN 07/09/20 09:09 Sodium Chloride 0.9% [Saline Flush] 10 ml FLUSH ASDIRECTED PRN Saline Lock Insert [OM.PC] Routine 07/09/20 12:23 CORONAVIRUS COVID-19, ZO Stat 07/09/20 12:26 Heparin Sodium 4,000 units IVPUSH ONETIME ONE 07/09/20 12:30 Heparin Sodium/D5W [Heparin 25,000 Units in D5W 500 ML] 25,000 units in 500 ml IV TITRATE Nitroglycerin/D5W [Nitroglycerin 25 MG/D5W 250 ML] 25 mg in 250 ml IV TITRATE
[2020-07-09] MEDS ORDERED: Nitroglycerin 0.4 MG Tab.SL SL PRN (08:51)
[2020-07-09] MEDS ORDERED: Aspirin 81 MG Tab.Chew PO ONE (08:59)
[2020-07-09] MEDS: Aspirin 81 MG Tab.Chew PO ONE ×2 (09:04→11:08)
[2020-07-09] MEDS ORDERED: Sodium Chloride 0.9% 10 ML Syringe FLUSH PRN (09:09)
[2020-07-09] MEDS ORDERED: Heparin Sodium 5,000 Units/ML Vial IVPUSH ONE (12:26)
[2020-07-09] MEDS ORDERED: Heparin Sodium/D5W 25,000 UNITS/500 ML BAG IV SCH (12:30)
[2020-07-09] MEDS ORDERED: Nitroglycerin/D5W 25 MG/250 ML BOTTLE IV SCH (12:30)
[2020-07-09] MEDS ORDERED: Sodium Chloride 0.9% 10 ML Syringe FLUSH ONE (13:37)
[2020-07-09] MEDS ORDERED: Sodium Chloride 0.9% 100 ML IV SCH (13:45)
[2020-07-09] MEDS ORDERED: Iopamidol 755 Mg/ML 100 ML Bottle IV SCH (13:45)
--- NOTE | 2020-07-09 15:12 | CRLCT ---
INDICATION: Chest pain TECHNIQUE: CT chest with i.v. contrast during the venous phase. Coronal and sagittal reformats were obtained. CONTRAST: 58 mL Isovue 370 COMPARISON: None FINDINGS: Cardiovascular: Mild biventricular cardiomegaly is present. The main pulmonary artery is near the upper limits of normal in size measuring 2.6 cm. No sign of aneurysm or dissection in the thoracic aorta. Mediastinum: No mass or adenopathy seen. Lung: There is a 2 mm calcified granuloma in the subpleural posterior right upper lobe on image 64, series 5. Dependent ground-glass atelectasis is present in both lung bases. Mild smooth septal thickening is present within the lung bases. Pleura and pericardium: Small bilateral pleural effusions are noted. No significant pericardial effusion is present. Chest wall and axilla: No mass or adenopathy seen. Bone: Unremarkable for age. Upper abdomen: Unremarkable. IMPRESSIONS: 1. No CT evidence of aortic dissection seen. The presence of intramural hematoma is difficult to assess without noncontrast images. 2. Mild smooth septal thickening is present within the lung bases. Clinical correlation is recommended to exclude mild basilar interstitial edema. 3. Small bilateral pleural effusions are noted. Dictated by Farhat Candelario MD @ 07/09/2020 3:11:09 PM Please note that all CT scans at this facility use dose modulation, iterative reconstruction, and/or weight-based dosing when appropriate to reduce radiation dose to as low as reasonably achievable. Dictated by: Farhat Candelario MD @ 07/09/2020 15:11:59 (Electronically Signed)
== END 2020-07-09 15:41 ==
LOC: JP.ED 03:45
DX: I21.4 Non-ST elevation (NSTEMI) myocardial infarction (principal); E78.00 Pure hypercholesterolemia, unspecified; I10 Essential (primary) hypertension; Z88.2 Allergy status to sulfonamides; Z79.899 Other long term (current) drug therapy; Z20.822 Contact with and (suspected) exposure to COVID-19
CPT/HCPCS: 36415; 71275; 80053; 84484; 85025; 85610; 85730; 93005; 96365; 96366; 99285-25; A9270-GY; J1644; Q9967; U0002

== ENCOUNTER 2021-09-22 06:54 | Emergency (ER) | payer MEDICARE | END 2021-09-22 12:38 | disposition other institution (70) | LOC: JP.ED 06:54 | DX: S32.810A Multiple fractures of pelvis with stable disruption of pelvic ring, initial encounter for closed fracture (principal); S32.10XA Unspecified fracture of sacrum, initial encounter for closed fracture; S00.83XA Contusion of other part of head, initial encounter; E78.00 Pure hypercholesterolemia, unspecified; I10 Essential (primary) hypertension; I25.2 Old myocardial infarction; Z88.2 Allergy status to sulfonamides; Z79.82 Long term (current) use of aspirin; Z79.899 Other long term (current) drug therapy; W22.09XA Striking against other stationary object, initial encounter; Y92.002 Bathroom of unspecified non-institutional (private) residence as the place of occurrence of the external cause | CPT/HCPCS: 72192; 99284 ==

== ENCOUNTER 2022-06-19 09:34 | Emergency (ER) | payer MEDICARE ==
[2022-06-19] MEDS ORDERED: Aspirin 81 MG Tab.Chew PO ONE (10:00)
[2022-06-19] MEDS ORDERED: Sodium Chloride 0.9% 10 ML Syringe FLUSH PRN (10:00)
[2022-06-19 10:39] LABS: ESTIMATED GFR 48 mL/min (>60); TROPONIN I HIGH SENSITIVITY 11.3 pg/mL (<=60.3)
== END 2022-06-19 13:25 | disposition home or self-care (01) ==
LOC: JP.ED 09:34
DX: R07.89 Other chest pain (principal); I44.7 Left bundle-branch block, unspecified; I25.10 Atherosclerotic heart disease of native coronary artery without angina pectoris; I11.0 Hypertensive heart disease with heart failure; I50.9 Heart failure, unspecified; I25.2 Old myocardial infarction; E78.00 Pure hypercholesterolemia, unspecified; Z88.2 Allergy status to sulfonamides; Z79.82 Long term (current) use of aspirin; Z79.899 Other long term (current) drug therapy
CPT/HCPCS: 36415; 71045; 71045-26; 80053; 84484; 85025; 93005; 99285; A9270-GY